=== PATIENT | male | born 1990 | race Hispanic/Latino ===

== ENCOUNTER 2025-06-15 00:46 | Emergency (ER) | payer SELFPAY ==
[2025-06-15] MEDS ORDERED: Sodium Chloride 0.9% 10 ML Syringe FLUSH PRN (01:35)
[2025-06-15 01:58] LABS: BASOPHILS ABSOLUTE AUTO 0.1 K/mm3 (0.0-0.2); BASOPHILS PERCENT AUTO 0.7 % (0.0-1.0); EOSINOPHILS ABSOLUTE AUTO 0.7 K/mm3 (0.0-0.4); EOSINOPHILS PERCENT AUTO 4.6 % (0.0-6.0); IMMATURE GRAN ABSOLUTE AUTO 0.56 K/mm3 (0.00-0.05); IMMATURE GRAN PERCENT AUTO 3.8 % (0.0-0.4); LYMPHOCYTES ABSOLUTE AUTO 3.5 K/mm3 (1.0-4.8); LYMPHOCYTES PERCENT AUTO 23.9 % (24.0-44.0); MEAN PLATELET VOLUME 12.2 fl (9.4-12.4); MONOCYTES ABSOLUTE AUTO 1.5 K/mm3 (0.0-0.8); MONOCYTES PERCENT AUTO 10.4 % (0.0-8.0); NEUTROPHILS ABSOLUTE AUTO 8.3 K/mm3 (1.8-7.7); NEUTROPHILS PERCENT AUTO 56.6 % (41.0-71.0); NRBC ABSOLUTE 0.00 (0.00-0.02); NRBC PERCENT 0.0 % (0.0-0.2); PLATELET COUNT,PLT 268 K/mm3 (150-400); RED BLOOD CELL COUNT 5.26 M/mm3 (4.52-5.90); WHITE BLOOD CELL COUNT,WBC 14.67 K/mm3 (3.9-11.3)
[2025-06-15] MEDS: Ketorolac 30 MG/ML SDV IVPUSH ONE (02:29)
[2025-06-15] MEDS: diphenhydrAMINE 50 MG/ML SDV IVPUSH ONE (02:29)
[2025-06-15] MEDS: Prochlorperazine 10 MG/2 ML SDV IVPUSH ONE (02:29)
[2025-06-15 02:36] LABS: A/G RATIO 1.0 (1-2); ALANINE AMINOTRANSFERASE,ALT 91.0 U/L (16-63); ASPARTATE AMNIOTRANSFERASE,AST 64.0 U/L (15-37); BILIRUBIN TOTAL 0.2 mg/dL (0.2-1.0); BLOOD UREA NITROGEN,BUN 18.0 mg/dL (7-18); CARBON DIOXIDE,CO2 29.0 mEq/L (21-32); CHLORIDE,CL 104.0 mEq/L (98-107); CREATININE 0.9 mg/dL (0.7-1.3); EST CRCL DRUG DOSING (CG) 105.35 mL/min; ESTIMATED GFR 116.0 mL/min (>60); GLUCOSE RANDOM 102.0 mg/dL (70-99); POTASSIUM,K 3.8 mEq/L (3.5-5.1); PROTEIN TOTAL,TP 7.9 g/dl (6.4-8.2); SODIUM,NA 141.0 mEq/L (136-145); TSH 1.784 uIU/mL (0.358-3.74)
== END 2025-06-15 03:28 | disposition home or self-care (01) ==
LOC: JD.ED 00:46
DX: R51.9 Headache, unspecified (principal); Z86.16 Personal history of COVID-19
CPT/HCPCS: 36415; 70450; 80053; 83735; 84443; 85025; 85652; 96361; 96374; 96375; 99284; J0780; J1200; J1885; J7030; 99282